=== PATIENT | male | born 1990 | race African-American/Black ===

== ENCOUNTER 2023-12-23 18:47 | Emergency (ER) | payer OTHER ==
--- NOTE | 2023-12-23 20:01 | ED ---
Psych HPI - General Source: patient, family Mode of arrival: ambulatory Limitations: altered mental status (Patient intoxicated) - History of Present Illness MD Complaint: suicidal ideation -: days(s) Associated Psychiatric Symptoms: depression, suicidal ideation Quality: getting worse Worsens With: alcohol <SukumarRohan - Last Filed: 12/23/23 19:58> <Yariel Springer - Last Filed: 12/25/23 12:48> - General Chief Complaint: Psychiatric Symptoms Stated Complaint: mental health Time Seen by Provider: 12/23/23 19:28 - History of Present Illness Initial Comments: This patient states that he is having thoughts of killing himself. He comes in requesting a needle so that he can stick it in his head. Patient admits to drinking, he otherwise not cooperative with history and physical (Rohan Patino) - Related Data Allergies Allergy/AdvReac Type Severity Reaction Status Date / Time No Known Allergies Allergy Verified 12/23/23 18:54 Review of Systems ROS Other: All systems not noted in ROS Statement are negative. Constitutional: Denies: fever Respiratory: Denies: cough, dyspnea Cardiovascular: Denies: chest pain Gastrointestinal: Denies: abdominal pain, vomiting Musculoskeletal: Reports: back pain Neurological: Reports: headache Psychiatric: Reports: depression, suicidal thoughts <SukumarRohan - Last Filed: 12/23/23 19:58> ROS Other: All systems not noted in ROS Statement are negative. <Yariel Springer - Last Filed: 12/25/23 12:48> ROS Statement: Those systems with pertinent positive or pertinent negative responses have been documented in the HPI. Past Medical History Past Medical History: Seizure Disorder Additional Past Surgical History / Comment(s): kidny removal, right lung removed Smoking Status: Current every day smoker Past Alcohol Use History: Abuse Past Drug Use History: None Reported <SukumarRohan - Last Filed: 12/23/23 19:58> General Exam Limitations: no limitations General appearance: alert, appears intoxicated Head exam: Present: atraumatic, normocephalic Eye exam: Present: normal appearance, nystagmus. Absent: scleral icterus, conjunctival injection Neck exam: Present: normal inspection, full ROM Respiratory exam: Present: normal lung sounds bilaterally. Absent: respiratory distress, wheezes, rales, rhonchi, stridor Cardiovascular Exam: Present: regular rate, normal rhythm, normal heart sounds. Absent: systolic murmur, diastolic murmur, rubs, gallop GI/Abdominal exam: Present: soft. Absent: tenderness, guarding Extremities exam: Present: normal inspection, normal capillary refill. Absent: pedal edema, calf tenderness Neurological exam: Present: alert Psychiatric exam: Present: suicidal ideation Skin exam: Present: warm, dry, intact, normal color <Rohan Patino - Last Filed: 12/23/23 19:58> Course Vital Signs 12/23/23 12/24/23 12/24/23 18:51 19:38 22:31 Temperature 98 F 97.7 F Pulse Rate 125 H 102 H 85 Respiratory 20 19 20 Rate Blood Pressure 135/82 132/86 133/88 O2 Sat by Pulse 98 100 100 Oximetry 12/25/23 12/25/23 12/25/23 00:56 06:27 10:00 Temperature 97.8 F 98.1 F Pulse Rate 87 90 Respiratory 20 13 18 Rate Blood Pressure 134/88 126/80 O2 Sat by Pulse 100 100 Oximetry 12/25/23 12:00 Temperature 98.1 F Pulse Rate 88 Respiratory 18 Rate Blood Pressure 147/88 O2 Sat by Pulse 100 Oximetry Medical Decision Making - Lab Data Result diagrams: 12/24/23 13:27 12/24/23 13:27 <Yariel Springer - Last Filed: 12/25/23 12:48> - Medical Decision Making Was patient admitted / discharged? Hospital course, mention meds given and route, prescriptions, significant lab abnormalities, going to OR and other pertinent info. @ -Patient was signed out to me by Dr. Bingham. I went back in and reevaluated the patient he said he was suicidal and has never been suicidal before. Patient has never had any mental health issues per him. Patient was evaluated by EPS EPS agreed that he needed to be admitted he will be transferred to a psych facility. I did fill out a clinical certification after I spent 1520 minutes talking to the patient I then spoke with EPS about the patient. I reevaluated the patient for another 10 minutes after patient was being set up for transfer. Undiagnosed new problem with uncertain prognosis? @ -[No] Drug Therapy requiring intensive monitoring for toxicity (Heparin, Nitro, Insulin, Cardizem)? @ -[No] Were any procedures done? @ -[No] Diagnosis/symptom? @ -Depression, suicidal ideations Acute, or Chronic, or Acute on Chronic? @ -Acute Uncomplicated (without systemic symptoms) or Complicated (systemic symptoms)? @ -Complicated Side effects of treatment? @ -[No] Exacerbation, Progression, or Severe Exacerbation? @ -[No] Poses a threat to life or bodily function? How? (Chest pain, USA, IA, pneumonia, PE, COPD, DKA, ARF, appy, cholecystitis, CVA, Diverticulitis, Homicidal, Suicidal, threat to staff... and all critical care pts) @ -Yes this could lead to (Yariel Springer) - Lab Data Lab Results 12/24/23 12/24/23 12/24/23 Range/Units 12:40 13:27 13:27 WBC 4.3 (3.8-10.6) k/uL RBC 4.49 (4.30-5.90) m/uL Hgb 13.8 (13.0-17.5) gm/dL Hct 42.0 (39.0-53.0) % MCV 93.5 (80.0-100.0) fL MCH 30.7 (25.0-35.0) pg MCHC 32.8 (31.0-37.0) g/dL RDW 14.3 (11.5-15.5) % Plt Count 118 L (150-450) k/uL MPV 8.1 Sodium 135 L (137-145) mmol/L Potassium 4.2 (3.5-5.1) mmol/L Chloride 103 (98-107) mmol/L Carbon Dioxide 22 (22-30) mmol/L Anion Gap 10 mmol/L BUN 9 (9-20) mg/dL Creatinine 0.53 L (0.66-1.25) mg/dL Est GFR (CKD-EPI)AfAm >90 (>60 ml/min/1.73 sqM) Est GFR (CKD-EPI)NonAf >90 (>60 ml/min/1.73 sqM) Glucose 256 H (74-99) mg/dL POC Glucose (mg/dL) 258 H (70-110) mg/dL POC Glu Spoilage Worker ID Kathy Barahona Calcium 8.8 (8.4-10.2) mg/dL Total Bilirubin 0.8 (0.2-1.3) mg/dL AST 43 (17-59) U/L ALT 57 H (4-49) U/L Alkaline Phosphatase 150 H (38-126) U/L Total Protein 6.6 (6.3-8.2) g/dL Albumin 4.0 (3.5-5.0) g/dL Urine Color Urine Appearance (Clear) Urine pH (5.0-8.0) Ur Specific [place] (1.001-1.035) Urine Protein (Negative) Urine Glucose (UA) (Negative) Urine Ketones (Negative) Urine Blood (Negative) Urine Nitrite (Negative) Urine Bilirubin (Negative) Urine Urobilinogen (<2.0) mg/dL Ur Leukocyte Esterase (Negative) Urine Opiates Screen (NotDetected) Ur Oxycodone Screen (NotDetected) Urine Methadone Screen (NotDetected) Ur Barbiturates Screen (NotDetected) U Tricyclic Antidepress (NotDetected) Ur Phencyclidine Scrn (NotDetected) Ur Amphetamines Screen (NotDetected) U Methamphetamines Scrn (NotDetected) U Benzodiazepines Scrn (NotDetected) Urine Cocaine Screen (NotDetected) U Marijuana (THC) Screen (NotDetected) SARS-CoV-2 (PCR) (Not Detectd) 12/24/23 12/24/23 12/24/23 Range/Units 13:27 13:48 15:20 WBC (3.8-10.6) k/uL RBC (4.30-5.90) m/uL Hgb (13.0-17.5) gm/dL Hct (39.0-53.0) % MCV (80.0-100.0) fL MCH (25.0-35.0) pg MCHC (31.0-37.0) g/dL RDW (11.5-15.5) % Plt Count (150-450) k/uL MPV Sodium (137-145) mmol/L Potassium (3.5-5.1) mmol/L Chloride (98-107) mmol/L Carbon Dioxide (22-30) mmol/L Anion Gap mmol/L BUN (9-20) mg/dL Creatinine (0.66-1.25) mg/dL Est GFR (CKD-EPI)AfAm (>60 ml/min/1.73 sqM) Est GFR (CKD-EPI)NonAf (>60 ml/min/1.73 sqM) Glucose (74-99) mg/dL POC Glucose (mg/dL) (70-110) mg/dL POC Glu Spoilage Worker ID Calcium (8.4-10.2) mg/dL Total Bilirubin (0.2-1.3) mg/dL AST (17-59) U/L ALT (4-49) U/L Alkaline Phosphatase (38-126) U/L Total Protein (6.3-8.2) g/dL Albumin (3.5-5.0) g/dL Urine Color Light Yellow Urine Appearance Clear (Clear) Urine pH 6.0 (5.0-8.0) Ur Specific [place] 1.044 H (1.001-1.035) Urine Protein Trace H (Negative) Urine Glucose (UA) 4+ H (Negative) Urine Ketones 2+ H (Negative) Urine Blood Negative (Negative) Urine Nitrite Negative (Negative) Urine Bilirubin Negative (Negative) Urine Urobilinogen <2.0 (<2.0) mg/dL Ur Leukocyte Esterase Negative (Negative) Urine Opiates Screen Not Detected (NotDetected) Ur Oxycodone Screen Not Detected (NotDetected) Urine Methadone Screen Not Detected (NotDetected) Ur Barbiturates Screen Not Detected (NotDetected) U Tricyclic Antidepress Not Detected (NotDetected) Ur Phencyclidine Scrn Not Detected (NotDetected) Ur Amphetamines Screen Not Detected (NotDetected) U Methamphetamines Scrn Not Detected (NotDetected) U Benzodiazepines Scrn Detected H (NotDetected) Urine Cocaine Screen Not Detected (NotDetected) U Marijuana (THC) Screen Not Detected (NotDetected) SARS-CoV-2 (PCR) Not Detected (Not Detectd) Critical Care Time Critical Care Time: Yes Total Critical Care Time: 35 <Yariel Springer - Last Filed: 12/25/23 12:48> Disposition <Rohan Patino - Last Filed: 12/23/23 19:58> Time of Disposition: 12:48 <Yariel Springer - Last Filed: 12/25/23 12:48> Clinical Impression: Depression, Suicidal ideation Disposition: TRANSFER TO PSYCH HOSP/UNIT Referrals: None,Stated [Primary Care Provider] - 1-2 days
[2023-12-23] MEDS: IBUPROFEN 600 MG TAB PO STA (22:55)
[2023-12-24 12:43] LABS: Glucose,Whole Blood 258 mg/dL (70-110)
[2023-12-24 14:04] LABS: HGB 13.8 gm/dL (13.0-17.5); MCH 30.7 pg (25.0-35.0); MCHC 32.8 g/dL (31.0-37.0); MCV 93.5 fL (80.0-100.0); Mean Platelet Volume 8.1; Platelet Count 118 k/uL (150-450); RBC 4.49 m/uL (4.30-5.90); RDW 14.3 % (11.5-15.5); WBC 4.3 k/uL (3.8-10.6)
[2023-12-24 14:27] LABS: ALT 57 U/L (4-49); AST 43 U/L (17-59); African American GFR (CKD) >90 (>60 ml/min/1.73 sqM); Alkaline Phosphatase 150 U/L (38-126); Anion Gap 10 mmol/L; Blood Urea Nitrogen 9 mg/dL (9-20); Calcium 8.8 mg/dL (8.4-10.2); Carbon Dioxide 22 mmol/L (22-30); Chloride 103 mmol/L (98-107); Glucose 256 mg/dL (74-99); Non-African American GFR(CKD) >90 (>60 ml/min/1.73 sqM); Potassium 4.2 mmol/L (3.5-5.1); Sodium 135 mmol/L (137-145); Total Bilirubin 0.8 mg/dL (0.2-1.3); Total Protein 6.6 g/dL (6.3-8.2)
[2023-12-24] MEDS: LORazepam 1 MG TAB PO STA ×2 (14:43→22:34)
[2023-12-24 15:04] LABS: Appearance,Urine Clear (Clear); Bilirubin,Urine Negative (Negative); Blood,Urine Negative (Negative); Color,Urine Light Yellow; Leukocyte Esterase,Urine Negative (Negative); Nitrite,Urine Negative (Negative); Protein,Urine Trace (Negative); Specific Gravity,Urine 1.044 (1.001-1.035); Urobilinogen,Urine <2.0 mg/dL (<2.0)
[2023-12-24 15:18] LABS: Glucose,Urine (UA) 4+ (Negative)
[2023-12-24 15:20] LABS: Ketones,Urine 2+ (Negative)
[2023-12-24 15:23] LABS: Amphetamine Screen,Urine Not Detected (NotDetected); Barbiturate Screen,Urine Not Detected (NotDetected); Benzodiazepines Screen,Urine Detected (NotDetected); Cocaine Screen,Urine Not Detected (NotDetected); Methadone Screen, Urine Not Detected (NotDetected); Opiate Screen,Urine Not Detected (NotDetected); Oxycodone Screen, Urine Not Detected (NotDetected); Phencyclidine Screen,Urine Not Detected (NotDetected); Tricyclic Antidepressant,Urine Not Detected (NotDetected); Urn Cannabinoid Scrn Not Detected (NotDetected)
[2023-12-24] MEDS: IBUPROFEN 600 MG TAB PO STA (16:25)
[2023-12-25] MEDS: MELATONIN 3 MG TABLET PO SCH (01:42)
[2023-12-25] MEDS: ACETAMINOPHEN TAB 500 MG TAB PO STA ×2 (12:43→20:33)
[2023-12-26] MEDS: ACETAMINOPHEN TAB 500 MG TAB PO STA (11:40)
[2023-12-26 12:27] VITALS: BP 129/90; PULSE 87; RESP 18; TEMP 97.7
== END 2023-12-26 17:22 ==
LOC: EC 18:47
DX: R45.851 Suicidal ideations (principal); F32.A Depression, unspecified; F17.200 Nicotine dependence, unspecified, uncomplicated; Z11.52 Encounter for screening for COVID-19
CPT/HCPCS: 36415; 80053; 80306; 81003; 82075; 85027; 87635; 99291